=== PATIENT | female | born 1970 | race Caucasian/White ===

== ENCOUNTER → 2018-06-02 | Outpatient (CLI) | payer MEDICARE, OTHER ==
--- NOTE | 2018-06-03 10:00 | MM ---
Reason for exam: screening (asymptomatic). Last mammogram was performed 1 year and 4 months ago. History: Patient is nulliparous. Physical Findings: A clinical breast exam by your physician is recommended on an annual basis and results should be correlated with mammographic findings. MG 3D Screening Mammo W/Cad Bilateral CC and MLO view(s) were taken. Prior study comparison: January 28, 2017, bilateral MG 3d screening mammo w/cad. April 27, 2015, bilateral MG screening mammo w CAD. There are scattered fibroglandular densities. There is no discrete abnormality. ASSESSMENT: Negative, BI-RAD 1 RECOMMENDATION: Routine screening mammogram of both breasts in 1 year.
== END | disposition home or self-care (01) ==
LOC: RADMAMWWP 08:15
PROVIDERS: ATTEND Family Medicine
DX: Z12.31 Encounter for screening mammogram for malignant neoplasm of breast (principal)
CPT/HCPCS: 77063; 77067

== ENCOUNTER → 2019-03-14 | Outpatient (CLI) | payer MEDICARE, OTHER ==
--- NOTE | 2019-03-14 09:53 | CT ---
EXAMINATION TYPE: CT abdomen pelvis wo con DATE OF EXAM: 03/14/2019 COMPARISON: None INDICATION: Excessive and frequent menstruation DLP: 1442 mGycm, Automated exposure control for dose reduction was used. CONTRAST: 0 mL of Isovue 300. Study performed without Oral Contrast TECHNIQUE: Axial images were obtained from above the diaphragm to the pubic rami in the axial plane a t 5 mm thick sections. Reconstructed images are reviewed on the computer in the coronal plane. FINDINGS: Limited CT sections are obtained the lung bases. The lung bases are clear. CT ABDOMEN: Liver: Normal Spleen: Normal Pancreas: Normal Adrenal glands: The adrenal glands are normal. Gallbladder: Normal Kidneys: No masses are evident. No hydronephrosis is present. No cysts are present. No renal stone s are identified. Aorta: Normal Inferior vena cava: Normal. CT PELVIS: Loops of bowel within the abdomen and pelvis are normal. The study is performed without oral cont rast limiting bowel evaluation. Appendix: Normal as visualized. Urinary bladder: Normal. Genitourinary structures: Uterus is unremarkable. Adnexal regions are clear. Osseous structures: No suspicious lytic or sclerotic lesions. IMPRESSIONS: 1. Unremarkable noncontrast CT abdomen and pelvis. 2. Consider ultrasound of the pelvis
== END | disposition home or self-care (01) ==
LOC: RADCTMAIN 07:51
PROVIDERS: ATTEND Family Medicine
DX: N92.0 Excessive and frequent menstruation with regular cycle (principal)
CPT/HCPCS: 74176

== ENCOUNTER → 2019-03-16 | Outpatient (CLI) | payer MEDICARE, OTHER ==
--- NOTE | 2019-04-17 15:18 | EEG ---
ELECTROENCEPHALOGRAM REPORT PROCEDURE DATE: 03/16/2019. ELECTROENCEPHALOGRAM (EEG) REPORT: TECHNIQUE: A routine 18 channel EEG was performed with video using the 10/20 international electrode placement system. HISTORY: Developmental delay. The patient had seizures as a child. The patient was originally on phenobarbital, weaned off approximately 2009. The patient has been having episodes of eyes rolling back and fluttering and then in a fog afterwards. CURRENT MEDICATIONS: Loratadine, Tylenol, lovastatin, enalapril, metoprolol, metformin. STUDY DURATION: 24 minutes. FINDINGS: BACKGROUND: The background activity consists of unsustained 6-8 hertz rhythmic waveforms with some intermixed theta range slowing. ACTIVATION: Hyperventilation: Not performed. Photic stimulation: Mild symmetric driving seen. Sleep: Drowsy. ABNORMALITIES: 1. Occasional frontally predominant bursts of 4-6 hertz activity were seen at times sharply contoured. These were potentially epileptiform in nature. Please note that they did not have a fully reproducible appearance. 2. Intermittent diffuse 5-7 hertz polymorphic theta range slowing was seen. IMPRESSION: Abnormal EEG. The intermittent diffuse theta range slowing mentioned above is not epileptiform in nature. Occasional frontally predominant sharply contoured slowing was seen. These bursts lasted 1-1.5 seconds. These were potentially epileptiform in nature. Overall, these findings indicate mild diffuse cerebral dysfunction. Consideration should be given to a primary generalized epilepsy. No seizures were recorded. Clinical correlation is recommended. The duration of the burst was 1-2 seconds. MMODL / IJN: [id number] /
== END | disposition home or self-care (01) ==
LOC: NEUROMAIN 10:45
PROVIDERS: ATTEND Family Medicine
DX: R94.01 Abnormal electroencephalogram [EEG] (principal)
CPT/HCPCS: 95816

== ENCOUNTER 2019-04-13 07:28 | Day surgery (SDC) | payer MEDICARE, OTHER ==
[2019-04-07 15:57] VITALS: BMI 29.7
[~2019-04-13 07:28] MED LIST: LACTATED RINGERS 1,000 ML IV SCH; LIDOCAINE 1% 20 ML VIAL (10MG/ML) FOR IV START INTRADERMA PRN
[2019-04-13 08:02] VITALS: RESP 16; TEMP 97.5
[2019-04-13 08:03] LABS: Glucose,Whole Blood 102 mg/dL (75-99)
[2019-04-13] MEDS ORDERED: LIDOCAINE 1% INJ 10MG/ML (20 ML MDV) ONE (08:22)
[2019-04-13] MEDS ORDERED: PROPOFOL 10 MG/ML 20 ML VIAL IV ONE (08:22)
[2019-04-13] MEDS ORDERED: ONDANSETRON 4 MG/2 ML VIAL ONE (08:22)
--- NOTE | 2019-04-13 08:52 | P.PCN ---
Date of Procedure: 04/13/19 Procedure(s) Performed: Brief history: Patient is a pleasant 48-year-old white female, scheduled for an elective upper endoscopy as well as colonoscopy as a part of evaluation of intermittent dysphagia to solids and screening for colorectal neoplasia Procedure performed: Esophagogastroduodenoscopy with biopsy Colonoscopy Preoperative diagnosis: Intermittent dysphagia to solids Screening for colon cancer Anesthesia: MAC Procedure: After informed consent was obtained from the patient was brought into the endoscopy unit and IV sedation was administered by anesthesia under continuous monitoring. Initially upper endoscopy was done. The Olympus GF 160 video endoscope was inserted inserted into the mouth and esophagus intubated without any difficulty and was gradually advanced into the stomach and duodenum and carefully examined. The bulb and second part of the duodenum appeared normal. The scope was then withdrawn into the stomach adequately insufflated with air and upon careful examination the antrum had mild gastritis and biopsies were done from this area. The body, cardia and fundus appeared normal. The scope was then withdrawn into the esophagus. The GE junction was located at 35 cm to the incisors. There was an early distal esophageal stricture identified. They've a erosions and circumferential erythema at the GE junction consistent with LA grade B reflux esophagitis. Rest of the esophagus appeared normal. Patient tolerated the procedure well. At this time the patient continued to remain sedation. Initial digital rectal examination was normal. Olympus CF 160 video colonoscope was then inserted into the rectum and gradually advanced to the cecum without any difficulty. Careful examination was performed as the scope was gradually being withdrawn. The prep was excellent. The cecum, ascending colon, transverse colon, descending colon, sigmoid colon and rectum appeared normal. Retroflexion was performed in the rectum and no lesions were noted. Patient tolerated the procedure well. Impression: 1. Upper endoscopy revealed early distal esophageal stricture, LA grade B reflux esophagitis and mild antral gastritis 2. Colonoscopy was essentially within normal limits with no evidence of colorectal neoplasia Recommendations: Findings of this examination were discussed with the patient as well as a family. she was advised to follow with the biopsy results. She'll be started on Prilosec 20 mg daily and was briefly educated about antireflux measures.. If she continues to have intermittent dysphagia. will plan on a repeat upper endoscopy with dilation in the near future. She can have a repeat scanning colonoscopy in 10 years.
[2019-04-13 09:12] VITALS: BP 114/71; PULSE 90
== END 2019-04-13 09:57 | disposition home or self-care (01) ==
LOC: ORWHC2ENDO 07:28
PROVIDERS: ATTEND Internal Medicine Gastroenterology
DX: K29.50 Unspecified chronic gastritis without bleeding (principal); K21.0 Gastro-esophageal reflux disease with esophagitis; K22.2 Esophageal obstruction; Z12.11 Encounter for screening for malignant neoplasm of colon; E11.9 Type 2 diabetes mellitus without complications; I10 Essential (primary) hypertension; E78.5 Hyperlipidemia, unspecified; Q99.2 Fragile X chromosome; R41.89 Other symptoms and signs involving cognitive functions and awareness; Z88.8 Allergy status to other drugs, medicaments and biological substances; Z88.1 Allergy status to other antibiotic agents; Z79.84 Long term (current) use of oral hypoglycemic drugs; Z79.899 Other long term (current) drug therapy; Z91.040 Latex allergy status; Z86.69 Personal history of other diseases of the nervous system and sense organs; Z98.51 Tubal ligation status
CPT/HCPCS: 81025; 88305; 43239; J2405; J2001; J2704; G0121

== ENCOUNTER → 2019-06-01 | Outpatient (CLI) | payer MEDICARE, OTHER ==
--- NOTE | 2019-06-01 12:26 | FL ---
EXAMINATION TYPE: FL barium swallow w video DATE OF EXAM: 06/01/2019 COMPARISON: NONE HISTORY: R09.89 unspecified symptoms and signs involving circulatory and respiratory system, choking sensation TECHNIQUE: Fluoroscopy. FINDINGS: Fluoroscopic guidance was provided for the procedure performed in conjunction with the [facility] pathology department. Please see complete report forthcoming from the Speech Pathology departmen t. Various consistencies from thin liquid to solids were administered. Fluoroscopy time 1 minute 49 seconds. Number of images: 0. No aspiration or penetration was evident. There is mild pooling within the vallecula. There was normal propulsion of the bolus. IMPRESSION: 1. Mild pooling within the vallecula. 2. No aspiration or penetration evident.
--- NOTE | 2019-06-01 13:55 | US ---
EXAMINATION TYPE: US thyroid st tissue head/neck DATE OF EXAM: 06/01/2019 COMPARISON: NONE CLINICAL HISTORY: R09.89 specified symptoms and signs involving the. Pt having difficulty swallowing GLAND SIZE: Right Lobe: 4.0 x 1.8 x 2.1 cm Overall Parenchyma: heterogenous Left Lobe: 4.5 x 1.4 x 1.5 cm Overall Parenchyma: heterogeneous Isthmus Thickness: 0.3 cm Bilateral neck scanned, no evidence of lymphadenopathy. IMPRESSION: Heterogeneous thyroid bilaterally, no discrete nodule visualized.
== END | disposition home or self-care (01) ==
LOC: RADFLMAIN 11:09
PROVIDERS: ATTEND Family Medicine
DX: R09.89 Other specified symptoms and signs involving the circulatory and respiratory systems (principal)
CPT/HCPCS: 74230; 76536

== ENCOUNTER → 2019-10-20 | Outpatient (CLI) | payer MEDICARE, OTHER ==
--- NOTE | 2019-10-21 09:56 | MM ---
Reason for exam: screening (asymptomatic). Last mammogram was performed 1 year and 5 months ago. History: Patient is nulliparous. Physical Findings: A clinical breast exam by your physician is recommended on an annual basis and results should be correlated with mammographic findings. MG 3D Screening Mammo W/Cad Bilateral CC and MLO view(s) were taken. Prior study comparison: June 02, 2018, bilateral MG 3d screening mammo w/cad. January 28, 2017, bilateral MG 3d screening mammo w/cad. There are scattered fibroglandular densities. There is no discrete abnormality. No significant changes when compared with prior studies. ASSESSMENT: Negative, BI-RAD 1 RECOMMENDATION: Routine screening mammogram of both breasts in 1 year.
== END | disposition home or self-care (01) ==
LOC: RADMAMWWP 09:10
PROVIDERS: ATTEND Family Medicine
DX: Z12.31 Encounter for screening mammogram for malignant neoplasm of breast (principal)
CPT/HCPCS: 77063; 77067

== ENCOUNTER → 2021-04-17 | Outpatient (CLI) | payer MEDICARE, OTHER ==
--- NOTE | 2021-04-18 15:03 | MM ---
Reason for exam: screening (asymptomatic). Last mammogram was performed 1 year and 6 months ago. History: Patient is postmenopausal and is nulliparous. Physical Findings: A clinical breast exam by your physician is recommended on an annual basis and results should be correlated with mammographic findings. MG 3D Screening Mammo W/Cad Bilateral CC and MLO view(s) were taken. Prior study comparison: October 20, 2019, bilateral MG 3d screening mammo w/cad. June 02, 2018, bilateral MG 3d screening mammo w/cad. The breast tissue is almost entirely fat. There is no discrete abnormality. ASSESSMENT: Negative, BI-RAD 1 RECOMMENDATION: Routine screening mammogram of both breasts in 1 year.
== END | disposition home or self-care (01) ==
LOC: RADMAMWWP 07:57
PROVIDERS: ATTEND Family Medicine
DX: Z12.31 Encounter for screening mammogram for malignant neoplasm of breast (principal); Z78.0 Asymptomatic menopausal state
CPT/HCPCS: 77063; 77067

== ENCOUNTER → 2021-12-11 | Outpatient (CLI) | payer MEDICARE, OTHER ==
--- NOTE | 2021-12-11 18:41 | CT ---
EXAM: CT Maxillofacial Sinuses Without Intravenous Contrast CLINICAL HISTORY: ITS.REASON CT Reason: J32.9 chronic sinusitis TECHNIQUE: Computed tomography images of the maxillofacial sinuses without intravenous contrast. CTDI is 31.55 mGy and DLP is 574.74 mGy-cm. This CT exam was performed using one or more of the following dose reduction techniques: automated exposure control, adjustment of the mA and/or kV according to patient size, and/or use of iterative reconstruction technique. COMPARISON: None FINDINGS: Maxillary sinuses: Mucosal thickening in the maxillary sinuses. Small polyp versus mucous retention cyst in the left maxillary sinus. No air- fluid levels. Sphenoid sinuses: Unremarkable. No air-fluid levels. Frontal sinuses: Unremarkable. No air-fluid levels. Ethmoid air cells: Minimal mucosal thickening in the ethmoid air cells. No air-fluid levels. Nasal cavity/septum: No acute findings. Bones/joints: No acute fracture. Soft tissues: Unremarkable. IMPRESSION: No air fluid levels in the sinuses to suggest acute sinusitis. Minimal mucosal thickening in the maxillary sinuses and ethmoid air cells.
== END | disposition home or self-care (01) ==
LOC: RADCTMAIN 11:18
PROVIDERS: ATTEND Family Medicine
DX: J34.89 Other specified disorders of nose and nasal sinuses (principal)
CPT/HCPCS: 70486

== ENCOUNTER 2022-04-11 06:08 | Day surgery (SDC) | payer MEDICARE, OTHER ==
[~2022-04-11 06:08] MED LIST changes: +LIDOCAINE 1% (10MG/ML) FOR IV START INTRADERMA PRN; -LIDOCAINE 1% 20 ML VIAL (10MG/ML) FOR IV START INTRADERMA PRN
[2022-04-11 06:18] VITALS: TEMP 97.5
[2022-04-11 06:27] LABS: Glucose,Whole Blood 97 mg/dL (70-110)
[2022-04-11] MEDS ORDERED: ONDANSETRON 4 MG/2 ML VIAL ONE (06:27)
[2022-04-11] MEDS ORDERED: ONDANSETRON 4 MG/2 ML VIAL IVP ONE (07:02)
[2022-04-11] MEDS ORDERED: PROPOFOL 10 MG/ML 20 ML VIAL IV ONE (07:08)
[2022-04-11] MEDS ORDERED: LIDOCAINE 2% INJ 20 MG/ML (2 ML VIAL) ONE (07:08)
--- NOTE | 2022-04-11 07:21 | P.PCN ---
Date of Procedure: 04/11/22 Procedure(s) Performed: BRIEF HISTORY: Patient is a 51-year-old, pleasant, white female with history of fragile X syndrome scheduled for an upper endoscopy with possible dilation for intermittent dysphagia to solids. She does have history of gastroesophageal reflux as well as esophageal stricture. Currently on Protonix 40 mg daily. PROCEDURE PERFORMED: Esophagogastroduodenoscopy with dilation. PREOPERATIVE DIAGNOSIS: Intermittent dysphagia to solids and long-standing history of GERD. IV sedation per anesthesia. PROCEDURE: After informed consent was obtained, the patient was brought into the endoscopy unit. IV sedation was administered by Anesthesia under continuous monitoring. Initially the Olympus GIF-140 video endoscope was inserted into the mouth. Esophagus intubated without any difficulty. It was gradually advanced into the stomach and duodenum and carefully examined. The bulb and the second part of the duodenum appeared normal. The scope at this time was withdrawn to the stomach, adequately insufflated with air, and upon careful examination, mucosa of the antrum, body, cardia and the fundus appeared normal. The scope was then withdrawn into the esophagus. Small sliding type hiatal hernia noted. The GE junction was located at 39 cm from the incisors. There was a distal e sophageal Schatzki's ring identified that was dilated using 18-20 mm TTS balloon in a sequential fashion for 60 seconds. The rest of the esophagus appeared normal. There were no erosions or ulcerations seen and the patient tolerated the procedure well. IMPRESSION: 1. Small hiatal hernia. 2. Distal esophageal Schatzki's ring status post balloon dilation using 18-20 mm TTS balloon. RECOMMENDATIONS: The findings of this examination were discussed with the patient as well as his legal guardian. She will continue with Protonix 40 mg daily and follow antireflux measures..
[2022-04-11 07:28] VITALS: RESP 14
[2022-04-11 07:33] LABS: Glucose,Whole Blood 101 mg/dL (70-110)
[2022-04-11 07:46] VITALS: BP 129/88; PULSE 78
== END 2022-04-11 08:21 | disposition home or self-care (01) ==
LOC: ORWHC2ENDO 06:08
PROVIDERS: ATTEND Internal Medicine Gastroenterology
DX: K22.2 Esophageal obstruction (principal); K44.9 Diaphragmatic hernia without obstruction or gangrene; Q99.2 Fragile X chromosome; I10 Essential (primary) hypertension; E78.5 Hyperlipidemia, unspecified; E11.9 Type 2 diabetes mellitus without complications; R56.9 Unspecified convulsions; K21.9 Gastro-esophageal reflux disease without esophagitis; Z91.040 Latex allergy status; Z88.9 Allergy status to unspecified drugs, medicaments and biological substances; Z88.1 Allergy status to other antibiotic agents; Z79.899 Other long term (current) drug therapy; Z79.84 Long term (current) use of oral hypoglycemic drugs
CPT/HCPCS: 43249; J2405; J2704; J2001; C1726

== ENCOUNTER → 2022-08-05 | Outpatient (CLI) | payer MEDICARE, OTHER ==
--- NOTE | 2022-08-06 08:42 | MM ---
Reason for Exam: Screening (asymptomatic). Last mammogram was performed 1 year(s) and 4 month(s) ago. Patient History: Menarche at age 10. Patient has no children. Postmenopausal. Risk Values: Daly 5 year model risk: 1.2%. NCI Lifetime model risk: 9.4%. Prior Study Comparison: 06/02/2018 Bilateral Screening Mammogram, [facility]. 10/20/2019 Bilateral Screening Mammogram, [facility]. 04/17/2021 Bilateral Screening Mammogram, [facility]. Tissue Density: There are scattered fibroglandular densities. Findings: Analyzed By CAD. There is no suspicious group of microcalcifications or new suspicious mass in either breast. Overall Assessment: Negative, BI-RAD 1 Management: Screening Mammogram of both breasts in 1 year. . Patient should continue monthly self-breast exams. A clinical breast exam by your physician is recommended on an annual basis. This exam should not preclude additional follow-up of suspicious palpable abnormalities. Note on Daly scores and lifetime risk: 1. A Daly score greater than 3% is considered moderate risk. If this is the case, consider specialist referral to assess eligibility for a risk reducing agent. 2. If overall lifetime risk for the development of breast cancer is 20% or higher, the patient may qualify for future screening with alternating mammogram and breast MRI. Electronically signed and approved by: Anil Hoff M.D.
== END | disposition home or self-care (01) ==
LOC: RADMAMWWP 07:41
PROVIDERS: ATTEND Family Medicine
DX: Z12.31 Encounter for screening mammogram for malignant neoplasm of breast (principal); Z78.0 Asymptomatic menopausal state
CPT/HCPCS: 77063; 77067

== ENCOUNTER → 2024-02-23 | Outpatient (CLI) | payer MEDICARE, OTHER ==
--- NOTE | 2024-02-24 12:48 | MM ---
Reason for Exam: Screening (asymptomatic). Last mammogram was performed 1 year(s) and 6 month(s) ago. Patient History: Menarche at age 10. Patient has no children. Postmenopausal. Risk Values: Daly 5 year model risk: 1.3%. NCI Lifetime model risk: 9.1%. Prior Study Comparison: 10/20/2019 Bilateral Screening Mammogram, [facility]. 04/17/2021 Bilateral Screening Mammogram, [facility]. 08/05/2022 Bilateral MG 3D screening mammo w/cad, [facility]. Tissue Density: The breasts are almost entirely fatty. Findings: Analyzed By CAD. There is no suspicious group of microcalcifications or new suspicious mass in either breast. Overall Assessment: Negative, BI-RAD 1 Management: Screening Mammogram of both breasts in 1 year. . Patient should continue monthly self-breast exams. A clinical breast exam by your physician is recommended on an annual basis. This exam should not preclude additional follow-up of suspicious palpable abnormalities. Note on Daly scores and lifetime risk: 1. A Daly score greater than 3% is considered moderate risk. If this is the case, consider specialist referral to assess eligibility for a risk reducing agent. 2. If overall lifetime risk for the development of breast cancer is 20% or higher, the patient may qualify for future screening with alternating mammogram and breast MRI. [facility], , 02/24/2024 12:45 PM. Electronically signed and approved by: Abdiel Eddy M.D. Radiologis
== END | disposition home or self-care (01) ==
LOC: RADMAMWWP 15:56
PROVIDERS: ATTEND Family Medicine
DX: Z12.31 Encounter for screening mammogram for malignant neoplasm of breast (principal); Z78.0 Asymptomatic menopausal state
CPT/HCPCS: 77063; 77067